=== PATIENT | female | born 1935 | race Caucasian/White ===

== ENCOUNTER 2017-07-02 13:05 | Inpatient (IN) | payer MEDICARE, OTHER ==
[~2017-07-02] VITALS: Ht 162.6 cm; Wt 36.2 kg
[2017-07-02 13:56] LABS: BASOPHILS % (AUTO) 1.1 % (0.0-5.0); EOSINOPHILS % (AUTO) 0.7 % (0.0-8.0); HEMATOCRIT 35.8 % (36-48); LYMPHOCYTES % (AUTO) 14.1 % (21.0-51.0); MEAN CORPUSCULAR HEMOGLOBIN 30.7 pg (27.0-33.0); MEAN CORPUSCULAR HGB CONC 34.2 g/dL (32.0-36.0); MEAN CORPUSCULAR VOLUME 89.7 fL (79-99); MONOCYTES % (AUTO) 11.5 % (3.0-13.0); NEUTROPHILS % (AUTO) 72.6 % (40.0-77.0); PLATELET COUNT (AUTO) 466 K/uL (130-400); RED BLOOD CELL COUNT(AUTO) 3.99 MIL/uL (4.00-5.50); RED CELL DISTRIBUTION WIDTH 14.8 % (11.0-15.5); WHITE BLOOD COUNT (AUTO) 7.3 K/uL (4.8-10.8)
[2017-07-02 14:05] LABS: CREATININE 0.8 mg/dL (0.5-1.5); POTASSIUM 4.2 mmol/L (3.5-5.1)
[2017-07-02 14:09] LABS: ALBUMIN 2.9 g/dL (3.5-5.0); BILIRUBIN,TOTAL 0.3 mg/dL (0.2-1.0); TOTAL PROTEIN, SERUM 7.8 g/dL (6.0-8.3)
[2017-07-02 14:18] LABS: INR 1.04 (0.85-1.15); PARTIAL THROMBOPLASTIN TIME 29.5 SEC (26.3-35.5); PROTHROMBIN TIME 10.9 SEC (9.6-11.6)
[2017-07-02 15:00] LABS: APPEARANCE,URINE Turbid (CLEAR); BILIRUBIN,URINE Negative (NEGATIVE); COLOR,URINE Yellow (YELLOW); GLUCOSE, URINE (UA) Negative (NEGATIVE); KETONES,URINE Negative (NEGATIVE); LEUKOCYTE ESTERASE ,URINE Large (NEGATIVE); NITRATE,URINE Positive (NEGATIVE); OCCULT BLOOD,URINE Trace (NEGATIVE); PH,URINE 6.5 (5.0-8.0); PROTEIN,URINE Negative (NEGATIVE); UROBILINOGEN,URINE 0.2 mg/dL (0.2-1.0)
[2017-07-02 15:07] LABS: BACTERIA,URINE Many /HPF (None Seen); RBC,URINE 0-1 /HPF (0-1); SQUAMOUS EPITHELIAL CELL,UR 0-2 /LPF (0-2); WBC,URINE >100 /HPF (0-1)
[2017-07-02] MEDS ORDERED: IPRATROPIUM/ALBUTEROL SULFATE 3 ML SOLUTION IH ONE (15:10)
[2017-07-02] MEDS ORDERED: LEVOFLOXACIN 500 MG/D5W 100 ML 100 ML ONE (16:51)
[2017-07-02 18:25] VITALS: BP 94/66
[2017-07-02 20:25] VITALS: BP 98/54
[2017-07-02] MEDS ORDERED: ONDANSETRON HCL 4 MG/2 ML VIAL IV PRN (23:15)
[2017-07-02] MEDS: LEVOFLOXACIN 500 MG/D5W 100 ML 100 ML IV SCH (23:15)
[2017-07-02] MEDS ORDERED: HYDRALAZINE HCL 20 MG/ML VIAL IV PRN (23:15)
[2017-07-02] MEDS ORDERED: ACETAMINOPHEN 325 MG TAB PO PRN (23:15)
[2017-07-02] MEDS ORDERED: ACETAMINOPHEN-CODEINE 300/30MG TAB PO PRN (23:15)
[2017-07-02 23:49] VITALS: BP 105/57
[2017-07-03] MEDS: IPRATROPIUM/ALBUTEROL SULFATE 3 ML SOLUTION IH SCH ×7 (02:17→21:24)
[2017-07-03 05:03] VITALS: BP 114/75
[2017-07-03 07:00] VITALS: BP 116/64
[2017-07-03] MEDS: PANTOPRAZOLE SODIUM 40 MG TABLET.DR PO SCH (10:37)
[2017-07-03] MEDS: ACETAMINOPHEN 325 MG TAB PO PRN ×2 (10:37→17:33)
[2017-07-03] MEDS: FUROSEMIDE 10 MG/ML 4ML VIAL IVP SCH (10:38)
[2017-07-03 11:00] VITALS: BP 116/56
[2017-07-03 16:00] VITALS: BP 97/50
[2017-07-03] MEDS ORDERED: LEVOFLOXACIN 500 MG/D5W 100 ML 100 ML IV SCH (16:00)
[2017-07-03 20:00] VITALS: BP 116/68
[2017-07-03] MEDS: LEVOFLOXACIN 500 MG/D5W 100 ML 100 ML IV SCH (20:41)
[2017-07-03] MEDS ORDERED: VANCOMYCIN 1GM+NS 250ML 250 ML IV SCH (23:45)
[2017-07-03 23:55] VITALS: BP 105/49
[2017-07-04] MEDS: IPRATROPIUM/ALBUTEROL SULFATE 3 ML SOLUTION IH SCH ×8 (01:50→23:33)
[2017-07-04 04:00] VITALS: BP 112/61
[2017-07-04 04:03] LABS: HEMATOCRIT 34.6 % (36-48); MEAN CORPUSCULAR HEMOGLOBIN 30.1 pg (27.0-33.0); MEAN CORPUSCULAR HGB CONC 33.5 g/dL (32.0-36.0); MEAN CORPUSCULAR VOLUME 89.9 fL (79-99); PLATELET COUNT (AUTO) 468 K/uL (130-400); RED BLOOD CELL COUNT(AUTO) 3.85 MIL/uL (4.00-5.50); RED CELL DISTRIBUTION WIDTH 14.7 % (11.0-15.5); WHITE BLOOD COUNT (AUTO) 7.5 K/uL (4.8-10.8)
[2017-07-04 07:00] VITALS: BP 110/76
[2017-07-04] MEDS: PANTOPRAZOLE SODIUM 40 MG TABLET.DR PO SCH (08:21)
[2017-07-04] MEDS: FUROSEMIDE 10 MG/ML 4ML VIAL IVP SCH (08:21)
[2017-07-04 11:00] VITALS: BP 94/41
[2017-07-04] MEDS ORDERED: MEROPENEM 1 GM VIAL IVP SCH (12:00)
[2017-07-04] MEDS ORDERED: MEROPENEM 1GM IVPB PREMIXED 1 GM IV SCH (12:00)
[2017-07-04] MEDS: AZITHROMYCIN 250 MG TABLET PO SCH (15:04)
[2017-07-04] MEDS: MEROPENEM 1 GM VIAL IVP SCH (15:04)
[2017-07-04 16:02] VITALS: BP 106/51
[2017-07-04 20:00] VITALS: BP 112/50
[2017-07-04 23:54] VITALS: BP 133/63
[2017-07-05] MEDS: IPRATROPIUM/ALBUTEROL SULFATE 3 ML SOLUTION IH SCH ×10 (02:00→23:34)
[2017-07-05] MEDS: MEROPENEM 1 GM VIAL IVP SCH ×2 (02:05→14:26)
[2017-07-05 04:00] VITALS: BP 96/59
[2017-07-05 07:54] VITALS: BP 108/58
[2017-07-05] MEDS: FUROSEMIDE 10 MG/ML 4ML VIAL IVP SCH (09:48)
[2017-07-05] MEDS: PANTOPRAZOLE SODIUM 40 MG TABLET.DR PO SCH (09:48)
[2017-07-05 11:26] VITALS: BP 88/51
[2017-07-05] MEDS ORDERED: MEROPENEM 1 GM VIAL IVP SCH (12:00)
[2017-07-05] MEDS: AZITHROMYCIN 250 MG TABLET PO SCH (14:26)
[2017-07-05 16:22] VITALS: BP 85/41
[2017-07-05 19:25] VITALS: BP 99/49
[2017-07-05 23:45] VITALS: BP 103/52
[2017-07-06] MEDS: MEROPENEM 1 GM VIAL IVP SCH ×2 (01:31→15:00)
[2017-07-06] MEDS: IPRATROPIUM/ALBUTEROL SULFATE 3 ML SOLUTION IH SCH ×3 (02:00→11:24)
[2017-07-06 03:49] VITALS: BP 98/57
[2017-07-06 08:13] VITALS: BP 106/44
[2017-07-06] MEDS: PANTOPRAZOLE SODIUM 40 MG TABLET.DR PO SCH (10:24)
[2017-07-06] MEDS: FUROSEMIDE 10 MG/ML 4ML VIAL IVP SCH (10:24)
[2017-07-06 11:21] VITALS: BP 99/54
[2017-07-06] MEDS: AZITHROMYCIN 250 MG TABLET PO SCH (15:01)
[2017-07-06] MEDS: ACETAMINOPHEN 325 MG TAB PO PRN (15:17)
[2017-07-06 15:47] VITALS: BP 108/60
== END 2017-07-06 18:35 | DRG 871 ==
LOC: EDH 13:05 → EDHIP 16:48 → 3AH 18:20
PROVIDERS: ADMIT Family Medicine; ATTEND Family Medicine
DX: A41.9 Sepsis, unspecified organism (principal); J18.9 Pneumonia, unspecified organism; R64 Cachexia; N39.0 Urinary tract infection, site not specified; B96.1 Klebsiella pneumoniae [K. pneumoniae] as the cause of diseases classified elsewhere; B96.89 Other specified bacterial agents as the cause of diseases classified elsewhere; Z16.24 Resistance to multiple antibiotics; Z87.891 Personal history of nicotine dependence
CPT/HCPCS: 36415; 71045; 80053; 81001; 82150; 83605; 83690; 83880; 84484; 85025; 85027; 85610; 85730; 87040; 87088; 87186; 93005; 94640; 94664; 99291; A4218; J1940; J1956; J2185; J3370